=== PATIENT | female | born 1990 | race African-American/Black ===

== ENCOUNTER 2017-07-27 18:10 | Emergency (ER) | payer OTHER ==
[2017-07-27] MEDS ORDERED: traMADol HCl 50 MG TAB ONE (18:31)
== END 2017-07-27 18:37 | disposition home or self-care (01) ==
LOC: BURERS 18:10
DX: S13.4XXA Sprain of ligaments of cervical spine, initial encounter (principal); X58.XXXA Exposure to other specified factors, initial encounter
CPT/HCPCS: 99283

== ENCOUNTER 2017-08-29 20:12 | Emergency (ER) | payer MEDICAID, OTHER ==
[2017-08-29 20:35] LABS: Pregnancy Test - Urine (BHCG) POSITIVE (Negative); Pregu Control Background? CLEAR/WHITE (CLR/WHITE); Pregu Control Bar Appear? YES (CONTROL BAR); Specific Gravity 1.031 (1.002-1.036)
[2017-08-29 20:37] LABS: Bilirubin Negative (Negative); Blood, Urine Negative (Negative); Clarity Hazy (Clear); Glucose, Urine (Dipstick) Negative (Negative); Leukocyte Negative (Negative); Nitrite Negative (Negative); Protein, Urine (Dipstick) Negative (Neg-Trace); Specific Gravity, Urine 1.031 (1.002-1.036); pH, Urine 5.5 (5.0-9.0)
[2017-08-29 20:47] LABS: #Basophils 0.1 thou/uL (0.0-0.2); #Eosinphils 0.1 thou/uL (0.0-0.7); #Lymphocytes 2.9 thou/uL (1.20-3.40); #Monocytes 0.5 thou/uL (0.11-0.59); #Neutrophils 4.5 thou/uL (1.40-6.50); %Basophils 1.6 % (0.0-1.0); %Eosinophils 1.3 % (0.0-10.0); %Lymphocytes 36.1 % (21.0-51.0); %Monocytes 6.1 % (0.0-10.0); Hemoglobin 13.3 g/dL (12.0-16.0); Mean Corpuscular HGB CONC 35.3 g/dL (32.0-36.0); Mean Corpuscular Hemoglobin 30.6 pg (27.0-31.0); Mean Corpuscular Volume 86.9 fl (81.0-99.0); Mean Platelet Volume 5.2 fL (7.4-10.4); Platelet Count 398 thou/uL (130-400); RBC Distribution Width 11.8 % (11.5-14.5); Red Blood Cell (RBC) Count 4.34 mill/uL (4.20-5.40); White Blood Cell (WBC) Count 8.1 thou/uL (4.8-10.8)
[2017-08-29 21:00] LABS: ALT (SGPT) 9 U/L (8-55); AST (SGOT) 13 U/L (5-34); Albumin 3.9 g/dL (3.5-5.0); Alkaline Phosphatase 65 U/L (40-150); Anion Gap 13 mmol/L (10-20); BUN (Urea Nitrogen) 11 mg/dL (7.0-18.7); Bilirubin, Total 0.8 mg/dL (0.2-1.2); Calc. Creatinine Clearance 0 mL/min (70-130); Calcium 9.5 mg/dL (7.8-10.44); Carbon Dioxide 22 mmol/L (22-29); Chloride 106 mmol/L (98-107); Estimated GFR-MDRD Greater than 90; Glucose 72 mg/dL (70-105); Lipase 23 U/L (8-78); Potassium 3.4 mmol/L (3.5-5.1); Protein, Total 7.9 g/dL (6.0-8.3); Sodium 138 mmol/L (136-145)
[2017-08-31 22:26] LABS: Chlamydia by PCR Not Detected (NotDetected); GC by PCR Not Detected (NotDetected)
== END 2017-08-29 21:41 | disposition home or self-care (01) ==
LOC: BURERS 20:12
DX: O99.89 Other specified diseases and conditions complicating pregnancy, childbirth and the puerperium (principal); R10.9 Unspecified abdominal pain; O99.341 Other mental disorders complicating pregnancy, first trimester; F41.9 Anxiety disorder, unspecified; Z3A.01 Less than 8 weeks gestation of pregnancy
CPT/HCPCS: 80053; 81003; 81025; 83690; 84702; 85025; 87480; 87491; 87510; 87591; 87660; 99284

== ENCOUNTER 2017-08-31 11:26 | Outpatient (CLI) | payer MEDICAID ==
--- NOTE | 2017-08-31 22:01 | ULT ---
FIRST TRIMESTER ULTRASOUND 08/31/17 The patient presented with low pelvic pain and cramping, but no bleeding. Multiple images were obtain ed using both abdominal and endovaginal probes. The uterus measures 8.9 x 5.4 x 1.6 cm. There indeed appears to be a gestational sac which measured a pproximately 1.2 cm in length. There does appear to be a very tiny pole. No cardiac activity wa s visible at the moment, but it may be too early to do so. The pole was too small to measure a crown- rump length. By sac size, one would surmise a 5 to 6 week gestation, probably closer to 5. There did appear to be a little extra hyperdensity in the endometrium which could be debris or even a small damien unt of subchorionic bleeding. The finding is simply not possible to completely evaluate at the moment . There is no sign of free fluid. The right ovary appears normal and was 2.2 cm long. The left ovary is 3.5 cm long and contains a 1.6 cm cyst, possibly a corpus luteum cyst. IMPRESSION: Gestational sac and pole present without definite cardiac activity as of yet. Further followup and/or serial quantitative HCGs will be needed. The possibilities at this point include an early IUP versus incomplete miscarriage. Code T POS: HOME
== END 2017-08-31 11:27 | disposition home or self-care (01) ==
LOC: BURULT 11:26
PROVIDERS: ATTEND Emergency Medicine
DX: O99.89 Other specified diseases and conditions complicating pregnancy, childbirth and the puerperium (principal); R10.2 Pelvic and perineal pain
CPT/HCPCS: 76856

== ENCOUNTER 2018-01-16 16:01 | Emergency (ER) | payer MEDICAID, OTHER ==
[2018-01-16] MEDS ORDERED: HYDROcodone/Acetaminophen 10/325 mg Tablet ONE (16:19)
== END 2018-01-16 16:30 | disposition home or self-care (01) ==
LOC: BURERS 16:01
DX: O99.613 Diseases of the digestive system complicating pregnancy, third trimester (principal); K02.9 Dental caries, unspecified; K03.81 Cracked tooth; Z3A.24 24 weeks gestation of pregnancy
CPT/HCPCS: 99282

== ENCOUNTER 2018-08-06 17:52 | Emergency (ER) | payer OTHER, SELFPAY ==
[2018-08-06] MEDS ORDERED: Lidocaine 2% PF 5 ML VIAL ONE (18:01)
== END 2018-08-06 18:13 | disposition home or self-care (01) ==
LOC: BURERS 17:52
DX: S61.215A Laceration without foreign body of left ring finger without damage to nail, initial encounter (principal); W26.0XXA Contact with knife, initial encounter
CPT/HCPCS: 12001; J2001

== ENCOUNTER 2019-01-17 17:08 | Emergency (ER) | payer SELFPAY ==
[2019-01-17] MEDS ORDERED: Ketorolac Tromethamine 60 MG/2 ML VIAL ONE (17:38)
[2019-01-17 18:10] LABS: Pregnancy Test - Urine (BHCG) Negative (Negative)
[2019-01-17 18:11] LABS: Pregu Control Background? CLEAR/WHITE (CLR/WHITE); Pregu Control Bar Appear? YES (CONTROL BAR); Specific Gravity 1.025 (1.002-1.036)
[2019-01-17 18:24] LABS: Bilirubin Small (Negative); Blood, Urine Negative (Negative); Clarity Cloudy (Clear); Glucose, Urine (Dipstick) 100 mg/dL (Negative); Leukocyte Negative (Negative); Nitrite Positive (Negative); Protein, Urine (Dipstick) 30 mg/dL (Neg-Trace); Specific Gravity, Urine 1.025 (1.005-1.030)
[2019-01-17 18:25] LABS: Bacteria/HPF 4+ HPF (None Seen); RBC/HPF 0-3 HPF (0-3); WBC/HPF 0-3 HPF (0-3)
[2019-01-17 18:26] LABS: Other Microscopic Description MUCOUSE THREADS
== END 2019-01-17 18:36 | disposition home or self-care (01) ==
LOC: BURERS 17:08
DX: B34.9 Viral infection, unspecified (principal); F41.9 Anxiety disorder, unspecified
CPT/HCPCS: 81003; 81015; 81025; 87086; 87804; 96372; J1885

== ENCOUNTER 2019-10-20 13:22 | Emergency (ER) | payer SELFPAY | END 2019-10-20 13:48 | disposition home or self-care (01) | LOC: BURERS 13:22 | DX: O99.512 Diseases of the respiratory system complicating pregnancy, second trimester (principal); J11.1 Influenza due to unidentified influenza virus with other respiratory manifestations; O99.342 Other mental disorders complicating pregnancy, second trimester; F41.9 Anxiety disorder, unspecified; Z3A.17 17 weeks gestation of pregnancy | CPT/HCPCS: 99283 ==

== ENCOUNTER 2022-06-04 10:35 | Emergency (ER) | payer MEDICAID, OTHER | END 2022-06-04 11:54 | disposition home or self-care (01) | LOC: BURERS 10:35 | DX: J06.9 Acute upper respiratory infection, unspecified (principal); I10 Essential (primary) hypertension; Z20.822 Contact with and (suspected) exposure to COVID-19 | CPT/HCPCS: 99283; U0003; U0005 ==